=== PATIENT | female | born 1985 | race Caucasian/White ===

== ENCOUNTER 2018-07-20 17:47 | Emergency (ER) | payer MEDICAID ==
[2018-07-20] MEDS: ONDANSETRON (ODT) 4 MG TAB ODT (20:20)
[2018-07-20] MEDS: KETOROLAC 30 MG INJ IM (20:20)
[2018-07-20] MEDS: SOD CHLORIDE 0.9% 1,000 ML IV (21:45)
[2018-07-20] MEDS: METOCLOPRAMIDE 10 MG INJ IV (21:46)
[2018-07-20] MEDS: DIPHENHYDRAMINE 50 MG INJ IV (21:46)
[2018-07-20] MEDS: HYDROCODONE/APAP (5/325) TAB PO (21:46)
== END 2018-07-20 22:39 | disposition home or self-care (01) ==
LOC: FTE 22:39
DX: R51 Headache (principal); R11.10 Vomiting, unspecified
CPT/HCPCS: 81025; 96361; 96372; 96374; 96375; 99284-25